=== PATIENT | female | born 2000 | race Caucasian/White ===

== ENCOUNTER 2025-03-18 15:44 | Emergency (ER) | payer OTHER, SELFPAY ==
[2025-03-18 15:46] VITALS: BP 138/85
[2025-03-18 17:58] LABS: % Basophils 0.4 % (0-2); % Immature Granulocytes 0.2 % (0-0.5); % Lymphocytes 26.9 % (20.5-51.1); % Monocytes 6.4 % (1.7-9.3); % Neutrophils 63.1 % (42.2-75.2); Absolute Eosinophils 0.2 10^3/uL (0-0.7); Absolute Lymphocytes 1.5 10^3/uL (1.2-3.4); Absolute Monocytes 0.4 10^3/uL (0.1-0.6); Absolute Neutrophils 3.6 10^3/uL (1.4-6.5); Hematocrit 42.2 % (37.0-47.0); Hemoglobin 14.8 g/dL (12.0-16.0); Mean Corp Hgb Conc. 35.1 g/dL (33.0-37.0); Mean Corpuscular Hgb 32.2 pg (27.0-31.0); Mean Corpuscular Volume 91.9 fL (81.0-99.0); Mean Platelet Volume 10.8 fL (7.4-10.4); Nucleated Red Blood Cells % 0 %; Platelet Count 214 10^3/uL (130-400); Red Blood Cell Count 4.59 10^6/uL (4.20-5.40); White Blood Cell Count 5.7 10^3/uL (4.8-10.8)
[2025-03-18 18:15] LABS: HCG, Serum Qualitative Screen Negative
[2025-03-18 18:18] LABS: Urine Albumin Negative (Neg - Trace); Urine Bilirubin Negative (Negative); Urine Character Clear (Clear); Urine Color Yellow; Urine Glucose Negative (Negative); Urine Ketone 3+ (Negative); Urine Leukocyte 1+ (Negative); Urine Nitrite Negative (Negative); Urine Occult Blood Negative (Negative); Urine Urobilinogen Negative (Neg - 1+)
[2025-03-18 18:21] LABS: ALT (SGPT) 11 U/L (0-35); AST (SGOT) 18 U/L (14-36); Albumin 5.1 g/dl (3.5-5.0); Alkaline Phosphatase 52 U/L (38-126); Blood Urea Nitrogen 8 mg/dl (7-17); Carbon Dioxide 20 mmol/L (22-30); Chloride 109 mmol/L (98-107); Glucose 107 mg/dl (70-99); Lipase 90 U/L (23-300); Potassium 4.1 mmol/L (3.5-5.1); Sodium 140 mmol/L (135-145); Total Bilirubin 0.8 mg/dl (0.2-1.3); Total Protein 7.7 g/dl (6.3-8.2); eGFR > 60.00
[2025-03-18 18:33] LABS: Urine Calcium Oxalate Crystals Present; Urine Squamous Cell 0-2 /LPF (Few)
[2025-03-18 18:34] LABS: Urine Red Blood Cell 0-2 /HPF (0-2)
--- NOTE | 2025-03-18 18:42 | ED.GENMED ---
History of Present Illness
General
Chief Complaint: Abdominal Symptoms
Source: patient and family
Time Seen by Provider: 03/18/25 18:23
History of Present Illness
History of Present Illness:
This patient is a 24-year-old female presents emergency department accompanied by her mother with complaints of first feeling unwell about 2 weeks ago. She had just started Lamictal and for the first 2 days felt 'great'. Then, the third day, she
noted that her whole body was leaking associated with repeated episodes of nausea and vomiting associated with chest tightness and feeling like her abdomen was full. Patient notes that she uses medical marijuana and was using it even more
frequently than usual such that it was every day. She thought that she might have CHS as a cause of her symptoms so so she has not used any marijuana in the last 3 days. However, she notes she continues to have nausea and nonbloody vomiting. She
also has had loose stools for last 5 days. She denies dyspnea, fever, sick contacts, bleeding, abdominal pain. She continues with nausea here in the ER. Her only medication that she is taking at this point is Pepcid. Patient does note that warm
showers make her feel better.
Past History
Past History
ED Past Medical History: GERD, Psychiatric and Other (POTS, mast cell activation disease)
ED Past Surgical History: Tonsilectomy
Social History
Tobacco: Non-smoker
Alcohol: None
Drug: Marijuana
Personal: Single
Living: with family
Phy Exam
Physical Exam
Physical Exam:
GENERAL: Alert , in no apparent distress, overall well-appearing
EYE: pupils equal and reactive
NECK: Supple, no significant adenopathy.
ENT: o/p clr, mmm.
CARDIAC: Regular rate and rhythm .
LUNGS: Clear breath sounds bilaterally, no acute respiratory distress, no wheezes/rales/rhonchi
ABDOMEN: Soft, without focal tenderness, no r/g, no cvat
NEUROLOGICAL: Alert and oriented, no focal neuro deficits
SKIN: Warm and dry, skin intact.
MUSCULOSKELETAL: No edema, well perfused.
PSYCH: Normal and appropriate interaction.
Course
Orders/Labs/Results
Orders:
Orders
03/18/25 16:23
Test Result ONCE
03/18/25 17:15
Crisis Consult Urgent
Reason for Consult: passive SI
Comment: Pt recently lost psychiatrist
03/18/25 17:50
Complete Blood Count/With Diff Urgent
Comprehensive Metabolic Panel Urgent
HCG, Serum Qualitative Screen Urgent
Lipase Urgent
03/18/25 17:55
UA [Urinalysis] Urgent
Date Specimen was Collected: 03/18/25
Time Specimen was Collected: 17:53
Urine Microscopic Urgent
Date Specimen was Collected: 03/18/25
Time Specimen was Collected: 17:53
03/18/25 18:41
Orthostatic VS- Treatment ONCE
03/18/25 19:17
Ondansetron Orally Disint [Zofran Odt (Orally Disintegrating)] 4 mg PO NOW STA
Abnormal Lab Results
03/18/25 03/18/25
17:50 17:55
MCH 32.2 H pg
(27.0-31.0)
MPV 10.8 H fL
(7.4-10.4)
Chloride 109 H mmol/L
(98-107)
Carbon Dioxide 20 L mmol/L
(22-30)
Glucose 107 H mg/dl
(70-99)
Albumin 5.1 H g/dl
(3.5-5.0)
Urine Ketones 3+ A
(Negative)
Ur Leukocyte Esterase 1+ A
(Negative)
03/18/25 17:50
03/18/25 17:50
Vital Signs
Initial and Last Documented VS:
Initial Vital Signs
Temp Pulse Resp BP Pulse Ox
98.4 F 64 18 138/85 98
03/18/25 15:46 03/18/25 15:46 03/18/25 15:46 03/18/25 15:46 03/18/25 15:46
Last Documented Vital Signs
Temp Pulse Resp BP Pulse Ox
98.4 F 64 18 138/85 98
03/18/25 15:46 03/18/25 15:46 03/18/25 15:46 03/18/25 15:46 03/18/25 15:46
Update Note
Update Note:
Patient presents to the Emergency Department with ___nausea vomiting weight loss
Number and Complexity of Problems Addressed at the Encounter
� Chronic conditions affecting care:
� Acute Exacerbation and/or Progression of Chronic Illness:
� Differential Diagnosis includes: But not limited to CHS, exacerbation of known gastroparesis, gastroenteritis, bowel obstruction, etc. etc.
Amount and/or Complexity of Data to be Reviewed and Analyzed
� I performed an independent evaluation of and my interpretation is:r
EKG:ead by me, sinus tachycardia, no acute ischemia, QTc within normal limits
CT:
Xrays:
Laboratory Studies: Generally unremarkable
Other:
� Review of other/old records reveals:
� Clinical information was obtained by an independent historian: Mother who is bedside
� Prescriptions/Medications Considered but not given:
� Further testing considered but not performed:
Risk of Complications and/or Morbidity or Mortality of Patient Management
� Social determinants of health affecting care:
� Discussion with other providers (PCP, Hospitalists, Consultants, etc):
� Escalation of care including admission/observation vs risk of discharge considered: Patient well-hydrated, no electrolyte abnormalities or other 'red flag' findings on history or physical to suggest more worrisome illness.
They are several reasons why patient may have persistent nausea and vomiting including her history of gastroparesis and also suspected CHS. Patient affirms that she will continue to abstain from THC and recognizes that it may take up to several
weeks before she sees relief of symptoms related to CHS. She is requesting antinausea medication, I confirmed her QTc is not long, and we will give her Zofran at this time. Of note, patient did note in triage that she has been having passive SI
thoughts over the past 2 days. Patient is not suicidal at this time and states that she has never had a plan, would never do this particular because of how it would impact her family. Is agreeable to crisis seeing her at this time.
ED Attending Note
-
Portions of this chart may have been created with voice recognition software.� Occasional wrong word or��sound alike� substitutions may have occurred due to the inherent limitations of voice recognition software.
Discharge Plan
Departure
Patient Disposition: Home (Routine Discharge)
Date of Disposition: 03/18/25
Time of Disposition: 19:20
Patient with high blood pressure during this ER visit?: Yes
Condition: Good
Discharge Problem:
Vomiting
Instructions: Nausea and Vomiting, Adult (DC), BLOOD PRESSURE
Prescriptions:
No Action
prednisone 20 mg tablet
40 mg PO DAILY Qty: 10 0RF
omeprazole 20 mg Tablet,Delayed Release (Dr/Ec)
20 mg PO DAILY
azithromycin 500 mg tablet
500 mg PO DAILY 10 Days Qty: 10 0RF
clindamycin HCl 300 mg capsule
300 mg PO QID 7 Days Qty: 28 0RF
Referrals:
Graciela Marie CRNP [Family Provider]
Activity Restrictions/Additional Instructions:
PLEASE SEE YOUR GI DOCTOR SCHEDULED TOMORROW. IF YOU DEVELOP FEVER, ABDOMINAL PAIN, BLEEDING, GET WORSE, OR OTHER WORRISOME SIGNS, PLEASE RETURN TO THE ER IMMEDIATELY EXCLAMATION
Interventions
Interventions:
*Risk Screen - Suicide Last Done: 03/18/25 15:46
*General Assessment Last Done: 03/18/25 15:46
*Neglect/Abuse Screening Last Done: 03/18/25 15:46
*ED- Fall Risk Assessment Last Done: 03/18/25 17:59
BH-Pylamj-Jboamcusxj Assessment Last Done: 03/18/25 17:59
Discharge Date and Time
Print Language: ROMANIAN
[2025-03-18] MEDS: ZOFRAN ODT (ORALLY DISINTEGRATING) 4 MG PO (19:55)
== END 2025-03-18 20:06 | disposition home or self-care (01) ==
LOC: EMR 15:44
PROVIDERS: Emergency Medicine; EMERGENCY PHYSICIAN Emergency Medicine; FAMILY PHYSICIAN Family Medicine
DX: R11.2 Nausea with vomiting, unspecified (principal); R07.89 Other chest pain
CPT/HCPCS: 99284; 80053; 81003; 81015; 83690; 84703; 85025; 93005

== ENCOUNTER 2025-05-03 21:52 | Emergency (ER) | payer OTHER, SELFPAY ==
[2025-05-03 21:57] VITALS: BP 140/89
[2025-05-03 22:29] VITALS: BP 140/88
[2025-05-03 22:32] VITALS: BMI 19.4
--- NOTE | 2025-05-03 22:42 | ED.GENMED ---
History of Present Illness
General
Chief Complaint: Psychiatric Problem
Source: patient and family
Time Seen by Provider: 05/03/25 22:23
History of Present Illness
History of Present Illness:
24-year-old female presents requesting evaluation by crisis. Patient states she had 'a breakdown' today. She is under a lot of stress and has bipolar disease, borderline personality, OCD. She was a heavy user of marijuana and recently stopped
smoking 6 weeks ago which she thinks is contributing to her stress. She has a history of POTS which causes her to have a rapid heart rate. She has also had cannabis hyperemesis syndrome which has improved since stopping her marijuana use.
Currently patient denies any suicidal homicidal ideations. She does admit to having the desire to herself while she was 'in the moment'.
Past History
Past History
ED Past Medical History: GERD, Psychiatric and Other (POTS, mast cell activation disease)
ED Past Surgical History: Tonsilectomy
Social History
Tobacco: Non-smoker
Alcohol: None
Drug: Marijuana
Personal: Single
Living: with family
Phy Exam
Physical Exam
Physical Exam:
General: Awake, Alert, Oriented X3. No acute distress.
Vitals: Tachycardic
Head: Atraumatic
Eyes: Pupils equal, EOMI
Throat: Airway intact, no exudates
Neck: Trachea midline
Lungs: Clear and equal b/l
Heart: Regular rate, no murmurs
Abd: Soft, Nontender, No pulsatile mass
Rectal:
Neuro: Cranial nerves intact, muscle strength equal bilaterally, cerebellar exam normal
Skin: Warm, dry, no rash
Extremities: pulses equal b/l, no edema
Course
Orders/Labs/Results
Orders:
Orders
05/03/25 22:42
Crisis Consult Urgent
Reason for Consult: bipolar, wants help
05/04/25 00:42
Olanzapine [Zyprexa] 5 mg PO NOW STA
Vital Signs
Initial and Last Documented VS:
Initial Vital Signs
Pulse Resp BP Pulse Ox
145 20 140/89 99
05/03/25 21:57 05/03/25 21:57 05/03/25 21:57 05/03/25 21:57
Last Documented Vital Signs
Pulse Resp BP Pulse Ox
109 23 120/81 98
05/04/25 00:30 05/04/25 00:30 05/04/25 00:00 05/04/25 00:30
MDM/Problems Addressed
Differential Diagnosis Includes:
Depression, anxiety, bipolar exacerbation,
MDM/Problems Addressed:
Patient presents with especially Bashan of mental illness. Patient evidently had an episode where she 'broke down'. She may have had some thoughts of self-harm but no longer feels this way. She recognizes that those thoughts are illogical. Will
consult crisis. Patient has no medical complaints at this time.
Crisis evaluated the patient. Does not feel the patient meets criteria for inpatient management. Outpatient resources provided.
*Pulse Oximetry
SaO2: 100
Oxygen Mode of Delivery: Room air
Patient hypoxic: no
*Critical Care Note
Total Time (30-74mins, 75-104mins- exclusive of procedures): Not Applicable
ED Attending Note
-
Portions of this chart may have been created with voice recognition software.� Occasional wrong word or��sound alike� substitutions may have occurred due to the inherent limitations of voice recognition software.
Discharge Plan
Departure
Patient Disposition: Home (Routine Discharge)
Date of Disposition: 05/04/25
Time of Disposition: 00:14
Patient with high blood pressure during this ER visit?: No
Condition: Good
Discharge Problem:
Bipolar affect, depressed
Instructions: Bipolar Disorder (DC)
Prescriptions:
No Action
prednisone 20 mg tablet
40 mg PO DAILY Qty: 10 0RF
omeprazole 20 mg Tablet,Delayed Release (Dr/Ec)
20 mg PO DAILY
azithromycin 500 mg tablet
500 mg PO DAILY 10 Days Qty: 10 0RF
clindamycin HCl 300 mg capsule
300 mg PO QID 7 Days Qty: 28 0RF
Referrals:
Graciela Marie CRNP [Family Provider]
Interventions
Interventions:
*Risk Screen - Suicide Last Done: 05/03/25 22:09
*General Assessment Last Done: 05/03/25 21:57
*Neglect/Abuse Screening Last Done: 05/03/25 22:21
*ED- Fall Risk Assessment Last Done: 05/03/25 22:32
*ED COVID-19 Vaccine History Last Done: 05/03/25 22:32
*Nursing Disposition Last Done: 05/04/25 00:19
ED-Psychological Assessment Last Done: 05/03/25 22:32
Discharge Date and Time
Discharge Date/Time: 05/04/25 00:45
Print Language: LITHUANIAN
[2025-05-03 23:00] VITALS: BP 153/98
[2025-05-04] VITALS: BP 120/81
== END 2025-05-04 00:45 | disposition home or self-care (01) ==
LOC: EMR 21:52
PROVIDERS: EMERGENCY PHYSICIAN Emergency Medicine; FAMILY PHYSICIAN Family Medicine
DX: F31.9 Bipolar disorder, unspecified (principal); F42.9 Obsessive-compulsive disorder, unspecified; F60.3 Borderline personality disorder
CPT/HCPCS: 99283